=== PATIENT | male | born 1940 | race Caucasian/White ===

== ENCOUNTER 2016-09-27 10:45 | Emergency (ER) | payer MEDICARE, OTHER ==
[~2016-09-27] VITALS: Ht 182.9 cm; Wt 59.5 kg
[~2016-09-27 10:45] MED LIST: ACET325C PO; ATOR20TA PO; CALC-890 PO; CIPR-231 PO; ENZA40CA PO; ESOM40CA41 PO; LACT-188 PO; ONDA-53 PO; PROM25TA14 PO; PUMP300C PO; RIVA20TA PO; SENN-133 PO; TAMS0.4C98 PO; [UNRECOGNIZED DRUG - CODE] PO; [UNRECOGNIZED DRUG - CODE] PO; [UNRECOGNIZED DRUG - OTHER] PO
[2016-09-27 11:02] VITALS: BP 110/67; PULSE 87; RESP 14; O2SAT 99
--- NOTE | 2016-09-27 11:04 | ED.REPORT ---
HPI-General Illness Date of Service Sep 27, 2016 ED Provider: Dr. Greg Quiroz M.D. A 76 year old male with a history of prostate cancer and PE presents to the ED via EMS from his urologist's office with intermittent bilateral leg weakness onset 1.5 weeks ago. The patient has had recent weight loss and frequent falls with no injury/trauma. He denies fever or vomiting. The patient is taking several medications including Bactrim (04/09/16) and Cipro (08/15/16). Additional history was obtained from the patient's . Nursing Notes Stated Complaint: WEAKNESS Chief Complaint: General Complaint Nursing Notes Reviewed: Yes Allergies: Coded Allergies: No Known Allergies (Unverified , 08/08/15) Scheduled ([urostat otc]) 1 CAPSULE PO DAILY Acetaminophen (Acetaminophen) 325 Mg Capsule 325 MG PO prn Atorvastatin (Lipitor) 20 Mg Tablet 20 MG PO DAILY Calcium Carbonate/Vitamin D3 (Calcium 600 + Vit D3 Tablet) 1 Each Tablet 1 TAB PO BID Ciprofloxacin (Cipro) 500 Mg Tablet 500 MG PO BID Ciprofloxacin (Cipro) 500 Mg Tablet 500 MG PO BID Dietary Supplement (Scandishake) 1 Each Packet 1 EACH PO DAILY Enzalutamide (Xtandi) 40 Mg Capsule 160 MG PO qd started 05/25 Esomeprazole Magnesium (Nexium) 40 Mg Capsule.dr 40 MG PO DAILY Lactose-Reduced Food (Ensure Original) 237 Ml Liquid 237 ML PO every meal Levocarnitine (l-Carnitine) 500 Mg Tablet 500 MG PO DAILY Pumpkin Seed Extract/Soy Germ (Azo Bladder Control Capsule) 300 Mg Capsule 300 MG PO DAILY Rivaroxaban (Xarelto) 20 Mg Tablet 20 MG PO DAILY Tamsulosin (Flomax) 0.4 Mg Capsule 0.4 MG PO BID Scheduled PRN Ondansetron (Ondansetron) 4 Mg Tablet 4 MG PO q8hrs PRN PRN prn Promethazine (Promethazine) 25 Mg Tablet 25 MG PO Q6H PRN PRN For Nausea Sennosides (Senna) 8.6 Mg Tablet 2 TAB PO DAILY PRN PRN For Constipation General Time Seen by MD: 11:04 Chief Complaint Weakness Hx Obtained From: Patient, Spouse Arrived By: Ambulance Sudden in Onset?: No Onset Occurred: 1 week ago Symptom Duration: Since onset Severity: Current: No pain currently Severity: Maximum: No pain Associated with: Denies: Fever, Nausea, Vomiting Pertinent Negative: Relieved by nothing Context Related History: Reports Cancer (Prostate) Recent Healthcare: Recent doctor visit Similar Sx Previous: No Past Medical History Past Medical History Prostate cancer Pulmonary embolism in summer Past Surgical History None reported Smoking History Unknown if Ever Smoker Social History Other Social History: Ambulatory Status Independent Review of Systems + frequent falls with no injury/trauma Full Review of Systems Constitutional: Reports: Recent wt loss, Denies: Fever Respiratory: Denies: Non-productive cough, Shortness of breath GI: Denies: Vomiting Neurologic: Reports: Weakness (Bilateral legs) Complete sys rev & neg: except as marked. Physical Exam Vital Signs Vital Signs Date Time Temp Pulse Resp B/P Pulse Ox O2 Delivery O2 Flow Rate FiO2 09/27/16 15:40 102 18 114/63 100 Room Air 09/27/16 15:30 82 16 116/66 100 Room Air 09/27/16 11:02 37.1 87 14 110/67 99 Room Air Initial VS: Reviewed Head / Eyes: Atraumatic, Normocephalic ENT: Conjunctiva normal, No scleral icterus Neck: Supple, Full range of motion Respiratory: Breath sounds normal, Clear to auscultation, No respiratory distress Cardiovascular: Regular rate & rhythm, Heart sounds normal Abdomen / GI: Soft, Non-tender Extremities: Vascular intact, Neuro intact, No swelling Skin: Warm, Dry, No cyanosis Neurologic: Alert, Oriented, Nonfocal Psychiatric: Mood/affect normal, Behavior normal, Normal thought content General/Constitutional: Awake, Alert Appearance / Presentation: Positive: Cachectic, Pale Appears weak Interpretation & Diagnostics Lab Results Interpretation Result Diagram: 09/27/16 1132 09/27/16 1132 Test 09/27/16 11:20 09/27/16 11:32 09/27/16 12:00 Hold Urine Received (Received) White Blood Count 9.8th/mm3 (3.8-10.1) Red Blood Count 3.14mil/mm3 (4.40-5.80) Hemoglobin 9.3g/dL (13.8-17.2) Hematocrit 28.9% (41.0-50.0) Mean Corpuscular Volume 92.0fL (81-100) Mean Corpuscular Hemoglobin 29.6pg (27.0-35.0) Mean Corpuscular Hemoglobin Concent 32.2% (32.0-37.0) Red Cell Distribution Width 16.1% (12.3-15.4) Platelet Count 171bil/L (150-400) Neutrophils (%) (Auto) 89.1% (40-74) Lymphocytes (%) (Auto) 4.1% (14-46) Monocytes (%) (Auto) 6.0% (4-12) Eosinophils (%) (Auto) 0.3% (0-5) Basophils (%) (Auto) 0.1% (0-3) Sodium Level 138mEq/L (134-144) Potassium Level 4.7mEq/L (3.5-5.2) Chloride Level 104mEq/L (97-108) Carbon Dioxide Level 17mmol/L (18-29) Blood Urea Nitrogen 48mg/dL (8-27) Creatinine 1.93mg/dL (0.76-1.27) Estimat Glomerular Filtration Rate 36mL/min (>59) Glucose Level 119mg/dL (60-99) Calcium Level 9.0mg/dL (8.5-10.1) Total Bilirubin 0.6mg/dL (0.0-1.2) Aspartate Amino Transf (AST/SGOT) 10U/L (0-50) Alanine Aminotransferase (ALT/SGPT) 7U/L (0-44) Alkaline Phosphatase 113U/L (25-160) Total Protein 7.6g/dL (6.4-8.4) Albumin 3.2g/dL (3.4-5.0) Hold Erickson Top Tube Received (Received) Urine Color Straw (YELLOW) Urine Appearance Cloudy (CLEAR,HAZY) Urine pH 6.0 (5.0-8.0) Urine Specific [place] 1.015 (1.003-1.035) Urine Protein Tracemg/dL (NEG,TRACE) Urine Glucose (UA) Negativemg/dL (NEGATIVE) Urine Ketones Negativemg/dL (NEGATIVE) Urine Occult Blood Moderate (NEGATIVE) Urine Nitrite Negative (NEGATIVE) Urine Bilirubin Negative (NEGATIVE) Urine Urobilinogen Normalmg/dL (NORMAL) Urine Leukocyte Esterase Large (NEGATIVE) Urine RBC 0-2/hpf (0-2) Urine WBC Packed/hpf (0-5) Urine Epithelial Cells Occasional/hpf (NONE-MOD) Urine Crystals None seen (NONE SEEN) Urine Bacteria Many/hpf (NONE-FEW) Urine Hyaline Casts None/lpf (NONE) Urine Granular Casts None seen (NONE SEEN) Urine Waxy Casts None seen (NONE SEEN) Urine Red Blood Cell Casts None seen (NONE SEEN) Urine White Blood Cell Casts None seen (NONE SEEN) Urine Mucus None seen (None Seen) Urine Trichomonas None seen (NONE SEEN) Urine Yeast None (NONE SEEN) Urinalysis Comment None Urine Culture Reflexed Indicated X-Ray Chest Interpretation Chest Xray Interpretation: IMPRESSION: No significant abnormality is seen on this portable chest examination. If there is clinical concern for a developing pulmonary process, a short-term followup chest series (with PA and lateral views, performed in deep inspiration) or dedicated chest CT would be suggested for further evaluation. Dictated by: Mike Bernard M.D. on 09/27/2016 at 11:45 View: Portable, 1 view Interpretation / Wet Read by: Interpret - Radiologist Re-Eval/Medical Decision Time of Eval: 13:52 Patient Status: Condition improved Re-Evaluation/Progress Note: Discussed with patient lab results, diagnosis, and plan for antibiotics and a road test. The patient wishes to be discharged rather than admitted. Time of Eval: 16:13 Patient Status: Condition improved Re-Evaluation/Progress Note: Discussed with patient plan for discharge. Follow-up and return to the ER instructions given. Patient agrees with plan for care and all questions were addressed. Counseled Regarding: Diagnosis, Lab results, Need for admission Discharge & Departure Primary Impression: UTI (urinary tract infection) Urinary tract infection type: acute cystitis Hematuria presence: without hematuria Qualified Code: N30.00 - Acute cystitis without hematuria Disposition: Home Discharge Condition All VS Reviewed: Yes Condition: Stable Patient Instructions: Urinary Tract Infection in Men (ED) Additional Instructions: Thank you for entrusting us with your care. Please take ciprofloxacin as prescribed, starting tomorrow afternoon. Call your primary care provider tomorrow for a follow-up appointment. Keep your urology appointment next week. Return to the ER with any new or worsening symptoms. Referrals: Tim Trinidad MD (PCP) Scribe Attestation Portions of this note were transcribed by Marina Carlson. I, Dr. Quiroz, personally performed the history, physical exam, and medical decision-making; I reviewed and confirmed the accuracy of the information in the transcribed note. Signed by: Andrew Villarreal, 09/27/2016, 16:24 copies to: Tim Trinidad MD, Kirk H MD Sep 27, 2016 11:04 MARINA CARLSON Sep 27, 2016 11:12
[2016-09-27 12:07] LABS: BASOPHILS % (AUTO) 0.1 % (0-3); EOSINOPHILS % (AUTO) 0.3 % (0-5); Mean Corpuscular Hemoglobin 29.6 pg (27.0-35.0); NEUTROPHILS % (AUTO) 89.1 % (40-74); Platelet Count 171 bil/L (150-400)
[2016-09-27 12:31] LABS: APPEARANCE,URINE CLOUDY (CLEAR,HAZY); COLOR,URINE STRAW (YELLOW); OCCULT BLOOD,URINE MODERATE (NEGATIVE); UROBILINOGEN,URINE NORMAL (NORMAL)
--- NOTE | 2016-09-27 12:47 | DRSVH ---
PROCEDURE: X-RAY CHEST ONE VIEW, PORTABLE ([id number]) INDICATIONS: weakness TECHNIQUE: One view of the chest was acquired. COMPARISON: [facility], CT, CT CHEST WO CON, 05/03/2016, 13:14. [facility], CT, CT CHEST WO CON, 01/04/2016, 11:38. FINDINGS: Surgical changes and devices: None. Lungs and pleura: On this semiupright portable chest examination, no large pneumothorax or large ple ural effusions are seen. No focal infiltrates are seen. Mediastinum: Mediastinal contours appear normal. Heart size is normal. Bones and chest wall: No suspicious bony lesions. Overlying soft tissues appear unremarkable. IMPRESSION: No significant abnormality is seen on this portable chest examination. If there is clinical concern for a developing pulmonary process, a short-term followup chest series ( with PA and lateral views, performed in deep inspiration) or dedicated chest CT would be suggested fo r further evaluation. Dictated by: Mike Bernard M.D. on 09/27/2016 at 11:45 Approved by: Mike Bernard M.D. on 09/27/2016 at 11:45
[2016-09-27] MEDS ORDERED: cefTRIAXone Inj 2,000 MG in IV Premix 1 EACH IV ONE (13:50)
[2016-09-27] MEDS ORDERED: cefTRIAXone Inj 2,000 MG in Dextrose 5% Minibag Plus 50 ML IV ONE (13:58)
[2016-09-27] MEDS ORDERED: DEXTROSE 5% IV SCH (13:59)
[2016-09-27] MEDS ORDERED: CEFTRIAXONE IV SCH (13:59)
[2016-09-27] MEDS ORDERED: 0.9% Sodium Chloride 1,000 ML IV ONE (14:00)
[2016-09-27 15:30] VITALS: BP 116/66; PULSE 82; RESP 16; O2SAT 100
[2016-09-27 15:40] VITALS: BP 114/63; PULSE 102; RESP 18; O2SAT 100
[2016-09-27] MEDS ORDERED: CIPR-231 PO (16:16)
--- NOTE | 2016-09-27 16:29 | NUR ---
spiritual care: pt's Kiana escorted by [facility] staff Ade and stopped in knotting machine operator's office to rest. accompanied pt's to ER to . available to follow as needed.
[2016-09-27 17:02] VITALS: BP 98/61; PULSE 99; RESP 18; O2SAT 98
[2016-12-04] MEDS ORDERED: HYDR-4003 PO (11:19)
[2017-02-10] MEDS ORDERED: ACET325T51 PO (10:44)
== END 2016-09-27 17:05 | disposition home or self-care (01) ==
LOC: EDUNIT# 10:45 → SED 10:45 → EDBD 10:45 → SED 17:05
DX: N30.00 Acute cystitis without hematuria (principal); R29.6 Repeated falls; Z85.46 Personal history of malignant neoplasm of prostate; Z86.711 Personal history of pulmonary embolism; Z79.01 Long term (current) use of anticoagulants
CPT/HCPCS: 36415; 51702; 51798; 71010; 80053; 81000; 85025; 87077; 87086; 87088; 87186; 96365; 99285; G0463; J0696; J7030

== ENCOUNTER 2017-01-03 15:47 | Inpatient (IN) | payer MEDICARE, OTHER ==
[~2017-01-03] VITALS: Ht 180.3 cm; Wt 82.9 kg
[~2017-01-03 15:47] MED LIST changes: -CIPR-231 PO; +HYDR-4003 PO; -PUMP300C PO; -[UNRECOGNIZED DRUG - CODE] PO; -[UNRECOGNIZED DRUG - CODE] PO; -[UNRECOGNIZED DRUG - OTHER] PO
--- NOTE | 2017-01-03 17:15 | NUR ---
Admit direct Pt transported form [facility] via ALS. IV in use Left Hand 18G. Pt demented but aware of situation. Family at bedside. 3L O2 in use per distributing clerk. 100% PSO2. Per report pt was not on 02. Per medic pt has a short time of htn. 200ml bolus given and 1000ml bag continues to infuse. No yu in place. Rafita blood noted at urethral site. Pt seems to be unable to void but feels like he needs too. Care continues
[2017-01-03 17:30] VITALS: BP 120/65; PULSE 113; RESP 18; O2SAT 100
--- NOTE | 2017-01-03 17:50 | NUR ---
Young Young catheter placed by Urology. Dark tea colored urine and blood noted on output. Per Urologist do NOT remove Young catheter. Patent and draining to gravity at this time. A few clots noted. Care continues Hospitalist to see pt and aware pt is here. Care continues
--- NOTE | 2017-01-03 18:03 | PCM.HPSURG ---
Subjective Date of Service: Jan 03, 2017 Referring Provider: Admitting Physician: Nahomy Rai MD Primary Care Physician: Tim Trinidad MD Attending Physician: Nahomy Rai MD Chief Complaint Difficult yu catheter History of Present Illness Mr Covarrubias is a 76 M well known to me for h/o prostate cancer. [facility] ER contacted me today for traumatic yu catheter placement. Home health apparently attempted to perform routine catheter change and inflated the yu within his penile urethra. He states the catheter was painful. Attempt to replace at [facility] ER was unsuccessful. CT at [facility] demonstrates B hydronephrosis (he's had this chronically; though it's slightly increased at this point) as well as air in the bladder wall. He states that apart from the yu problem, he feels in his USOH, which is fairly poor. Allergy Allergies: Coded Allergies: No Known Allergies (Unverified , 08/08/15) [facility] Social History Smoking Status: Unknown if Ever Smoker H&P Surgical Exam Exam General: Alert, Cooperative Abdomen: Soft (softly distended, c/w full bladder) Neuro: Cranial Nerves 2-12 nl Assessment & Plan Assessment Difficult yu placement Plan: Using sterile technique, I placed an 18 Fr yu. There was a false passage within the mid penile urethra. With gentle manipulation, yu was advanced to the bladder; urine was malodorous and cloudy, intermittently yellow and intermittently wine colored. I instructed the pt and family to no longer allow home health to change his yu catheters; this care is to be with urology clinic only. I spoke with Dr Rai about his history and yu placement. Very much appreciate hospitalist care of Mr Covarrubias. He will keep this yu upon discharge home and will f/u with urology monthly for routine catheter changes. Lisset Baker MD Jan 03, 2017 18:03
[2017-01-03] MEDS ORDERED: 0.9% Sodium Chloride 1,000 ML IV SCH ×2 (18:39→18:45)
[2017-01-03] MEDS ORDERED: Polyethylene Glycol (PEG) 17 Gm Powder PO PRN (18:40)
[2017-01-03] MEDS ORDERED: Ondansetron 2 mg/mL 2 mL Inj IVPUSH PRN (18:40)
[2017-01-03] MEDS ORDERED: Alum-Mag Hydrox-Simeth 30 mL Suspension PO PRN (18:40)
[2017-01-03] MEDS ORDERED: PANT40TA3 PO (18:45)
--- NOTE | 2017-01-03 18:52 | PCM.HPMED ---
Subjective Date of Service Jan 03, 2017 Primary Provider: Admitting Physician: Nahomy Rai MD Primary Care Physician: Tim Trinidad MD Attending Physician: Nahomy Rai MD Chief Complaint: Hematuria and possible sepsis History of Present Illness: He has metastatic prostate cancer and has a chronic indwelling Young. It was changed by the home health nurse yesterday and within 30 minutes he began to note hematuria and this morning the bag was full of blood and they brought him to the emergency department at [place]. It was determined that the Young balloon had been expanded the penis instead of the bladder. ED physician remove the Young catheter but was unable to place a new one so he was transferred here to be cared for by his urologist. He had complained of feeling lightheaded, especially with standing, weakness and occasionally some nausea. Denies any known fever or chills or sweats. At [place] emergency department initially his blood pressure was 111/55 but when they stood him blood pressure was 80/48. They also noted a white blood cell count of 13.8 with 30 bands, a lactate of 5.1, 42 and a creatinine of 1.8. They were concerned he might have sepsis due to urinary tract infection and gave him a dose of Zosyn. The urologist reports that when she did place the Young catheter here she obtained foul-smelling urine which has been sent for culture. It is presumed that they obtained blood cultures at [place] emergency department. 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 Xarelto Hyperlipidemia Chart mentions possibility of rheumatoid arthritis, family not aware of him having any arthritis Past history of shingles Surgical History Bilateral rotator cuff rotator cuff surgery Family History Father of a heart attack in his 70s and mother of "old age" in her 80s Social History 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 Thinks he is in his mobile home, does not know the year. HEENT: unremarkable, no JVD Heart: Regular Lungs: Clear anteriorly and laterally Abdomen: Soft, bowel tones present, mild suprapubic tenderness Extremities: No pedal edema Neuro: No apparent deficits hand banana grader strong and equal and able to raise both legs off the bed symmetrically although somewhat weakly Assessment & Plan # Hematuria, by report due to dramatic Young cath insertion with balloon inflated in the urethral - Has already been seen by urology who was able to place a new Young cath - Hold Xarelto - Follow hemoglobin - Other care per urology # Probable urinary tract infection - Zosyn given at [place] emergency department and will be continued - Follow urine and blood cultures # Possible sepsis due to urinary tract infection - Zosyn as above - Check pro calcitonin, lactate reported to be 5.1 and [place] emergency department - Aggressive IV fluid resuscitation # Acute kidney injury, creatinine reported to be 1.8 at [place] emergency department today and had been 1.3 on January 01 - Most likely due to sepsis, possibly also some volume depletion - IV fluids as above - Follow labs # Metastatic prostate cancer - Continue home medications Nahomy Rai MD Jan 03, 2017 18:52
[2017-01-03 19:38] LABS: BASOPHILS % (AUTO) 0 % (0-3); EOSINOPHILS % (AUTO) 0.2 % (0-5); MONOCYTES % (AUTO) 3.4 % (4-12); Mean Corpuscular Hemoglobin 30.7 pg (27.0-35.0); Mean Corpuscular Volume 91.7 fL (81-100); NEUTROPHILS % (AUTO) 93.9 % (40-74); Platelet Count 85 bil/L (150-400)
[2017-01-03] MEDS: 0.9% Sodium Chloride 1,000 ML IV SCH (20:01)
[2017-01-03] MEDS: Famotidine Inj 20 MG in IV Premix 1 EACH IV SCH (20:01)
[2017-01-03 20:55] VITALS: BP 97/61; PULSE 106; RESP 20; O2SAT 98
[2017-01-03 23:41] LABS: APPEARANCE,URINE CLOUDY (CLEAR,HAZY); COLOR,URINE RED (YELLOW); OCCULT BLOOD,URINE LARGE (NEGATIVE); UROBILINOGEN,URINE NORMAL (NORMAL)
[2017-01-04] VITALS (10 sets, daily range): BP systolic 81–104; BP diastolic 43–61; PULSE 96–108; RESP 16–18; O2SAT 90–100
[2017-01-04] MEDS: Piperacillin-Tazo 3.375 Gm Inj 3.375 GM in Dextrose 5% Minibag Plus 50 ML IV SCH ×3 (01:18→17:59)
--- NOTE | 2017-01-04 03:29 | NUR ---
/PSYCH; yu draining dark tea colored urine, foul smelling. Ua sent to the lab= culture indicated. Turned q 2hrs. Bottom reddens easily. Slept well. Did not try to get out of bed. Unable to say where he is but otherwise appropriate. Addendum: 01/04/17 at 0332 by ERNIE RAYMUNDO RN Antibiotic
[2017-01-04] MEDS: 0.9% Sodium Chloride 1,000 ML IV SCH ×4 (04:45→19:44)
--- NOTE | 2017-01-04 07:31 | PCM.PNMED ---
Subjective Date of Service Jan 04, 2017 Subjective No complaints Exam Vital Signs Vital Sign - Last Date Time Temp Pulse Resp B/P Pulse Ox O2 Delivery O2 Flow Rate FiO2 01/04/17 05:43 36.6 108 18 104/61 100 Nasal Cannula 3.00 Intake and Output 01/03/17 01/03/17 01/04/17 Cumulative From/Thru 15:00 23:00 07:00 01/03/17 17:30 - 01/04/17 06:16 Intake Total 0 ml 906 ml 906 ml Output Total 950 ml 950 ml Balance 0 ml -44 ml -44 ml Intake Oral 0 ml 100 ml 100 ml IV Total 806 ml 806 ml Output Urine Total 950 ml 950 ml # Bowel Movements 0 0 Exam General: Alert,oriented to hosp but not date/year, nursing staff have noted confusion, no acute distress Heart: Regular Lungs: Clear anteriorly and laterally although slightly decreased at the right base Abdomen: Soft, non-tender Extremities: 1+ pedal edema IVs and Medications Medications Reviewed: Medications were reviewed in detail Lab and Diagnostics Result Diagram: 01/03/17192401/03/171924 Assessment & Plan # Hematuria, by report due to dramatic Young cath insertion with balloon inflated in the urethral - Has already been seen by urology who was able to place a new Young cath - Christelrelto held - Follow hemoglobin 11.6 --> 9.3 in part due to IVF, will check this pm (see addendum below) and in am - Other care per urology # Gram neg Sepsis, POA presumed due to urinary tract infection - Zosyn given at [place] [facility] and will be continued - Urine obtained here after Zosyn at [place] [facility] is "pending" - 2 sets of blood cultures obtained at [place] [facility] - all 4 bottles growing GNB - phone # there is [phone] - lactate reported to be 5.1 at [place] [facility] - pro calcitonin 6.39 last tho, will recheck tomorrow - Aggressive IV fluid resuscitation ordered at admit but nurses ignored the 2 liter bolus order and just started 100/hr. Will give bolus today, still with mild tachycardia and borderline BP Addendum: Manual SBP by nurse through the day has been 90 (even though MANAGER POOL was getting 80's with automatic cuff) and sev boluses of NS given (3 liters then 4th liter slowed to 250/hr), maintaining the SBP of 90. Then 1600 CBC showed Hgb of 6.9 so ordered one unit pRBC and 2nd to be given if repeat Hgb < 8 (or < 9 with SBP < 100). Platelets also low, probably due to sepsis # Acute kidney injury, creatinine reported to be 1.8 at [place] [facility] on day of admit and had been 1.3 on January 01 - Most likely due to sepsis, possibly also some volume depletion - still 1.8 this am but didn't get IVF bolus as ordered - IV fluids as above - Follow labs # Chest xray with possible pneumonia but since blood cultures positive for GNB will not change antibiotic coverage # Metastatic prostate cancer - Continue home medications VTE Mechanical Devices: Intermittant Pneumatic CD Nahomy Rai MD Jan 04, 2017 07:31
[2017-01-04 07:56] LABS: Mean Corpuscular Hemoglobin 30.1 pg (27.0-35.0); Mean Corpuscular Volume 92.6 fL (81-100)
--- NOTE | 2017-01-04 08:55 | DRSVH ---
PROCEDURE: X-RAY CHEST ONE VIEW, PORTABLE ([id number]) INDICATIONS: sepsis TECHNIQUE: One view of the chest was acquired. COMPARISON: Outside Film, CT, CT ABD PELVIS WO CON, 01/03/2017, 12:21. Outside Film, CR, XR CHEST 1V W, 01/03/2017, 10:55. FINDINGS: Surgical changes and devices: None. Lungs and pleura: No pleural effusions or pneumothorax. Increased interval opacities in the retroca rdiac and right lower lobe. Mediastinum: Mediastinal contours appear normal. Heart size is normal. Bones and chest wall: No suspicious bony lesions. Overlying soft tissues appear unremarkable. IMPRESSION: Increased interval opacities in the retrocardiac and right lower lobe. Findings appear inside technical sales representative of air space disease, which can be atelectasis and/or pneumonia. Dictated by: Gricel Pugh M.D. on 01/04/2017 at 8:38 Approved by: Gricel Pugh M.D. on 01/04/2017 at 8:54
[2017-01-04] MEDS: ENZALUTAMIDE 40 MG PO SCH (08:57)
[2017-01-04] MEDS: Famotidine Inj 20 MG in IV Premix 1 EACH IV SCH (08:58)
--- NOTE | 2017-01-04 09:46 | PCM.PNSURG ---
Subjective Date of Service: Jan 04, 2017 Date of Service: Jan 04, 2017 Visit Information: Reason for Visit Urinary Obstruction Surgery/Surgery Date Post-Op Day # Date of Admission: Jan 03, 2017 at 17:24 Hospital Day # 2 Subjective: Mr Covarrubias has no complaints. He denies pain or feeling untoward. He is consuming clear liquids and applesauce at present. Objective Vital Sign- Last 8 Hours Date Time Temp Pulse Resp B/P Pulse Ox O2 Delivery O2 Flow Rate FiO2 01/04/17 09:31 36.7 99 16 86/43 98 Nasal Cannula 0.50 01/04/17 08:30 Supplement Oxygen 01/04/17 05:43 36.6 108 18 104/61 100 Nasal Cannula 3.00 Intake and Output- Last 8 Hour 01/04/17 Cumulative From/Thru 07:00 01/03/17 17:30 - 01/04/17 06:16 Intake Total 906 ml 906 ml Output Total 950 ml 950 ml Balance -44 ml -44 ml Intake Oral 100 ml 100 ml IV Total 806 ml 806 ml Output Urine Total 950 ml 950 ml # Bowel Movements 0 0 General: Alert, Cooperative Abdomen: Soft, Non-tender Catheters: Urethral 2 Way Yu (draining light yellow tinged urine; totally clear) Result Diagram: 01/04/17 0740 01/04/17 0740 Assessment & Plan Impression HD#2 Problems: Plan Very much appreciate hospitalist care of Mr Covarrubias. From purely urologic standpoint, he can DC home when deemed appropriate from medical standpoint. - He understands he will keep his yu on DC home - He will f/u with urology in 1 month for yu cath change Lisset Baker MD Jan 04, 2017 09:46
--- NOTE | 2017-01-04 10:52 | NUR ---
bolus 2 Liter fluid bolus administered this am per orders. Addendum: 01/04/17 at 1405 by ADRIANNA RONQUILLO RN Pt Blood pressure 81/48, called , administering another 1L bolus Addendum: 01/04/17 at 1918 by ADRIANNA RONQUILLO RN Blood pressures continued to be low, administered a 4th liter of Saline bolus. Hemoglobin level critical, notified MD, order received to type and cross and administer blood. Consent form signed with patient and Verbal consent received with 2 RN verifying from DPOA. Report given to night club manager RN to start blood transfusion when it is ready.
--- NOTE | 2017-01-04 12:24 | NUR ---
MARIE signed, Inpatient from day of admit
[2017-01-04] MEDS ORDERED: 0.9% Sodium Chloride 1,000 ML IV ONE ×3 (13:25→16:45)
[2017-01-04 16:30] LABS: Mean Corpuscular Hemoglobin 29.7 pg (27.0-35.0); Mean Corpuscular Volume 93.1 fL (81-100)
[2017-01-04] MEDS ORDERED: 0.9% Sodium Chloride 250 ML IV PRN (17:05)
--- NOTE | 2017-01-04 18:06 | NUR ---
STUDENT NURSE SHIFT NOTE Pt is pleasant and states he feels okay. His blood pressure has been running low in the high-80s/50s, gave 3L bolus, but patient's BP has not increased. Pt is also receiving NS constantly, concurrently with his ABO. Pt has an indwelling catheter, not to be removed or changed except by his urologist. His urine was dark red this morning, but after an abundance of fluids is a clearer yellow. Pt's hgb at 1700 was 6.9, 1-2 units of PRBC ordered. Pt does not ambulate and uses a bedpan fairly well. Had a small BM today after feeling bloated most of the morning. Plan for now is to continue fluids, blood transfusion if consented, Zosyn for UTI, 2L oxygen via nasal cannula, and monitoring of vital signs and symptoms of worsening sepsis.
[2017-01-04] MEDS: HYDROcodone-APAP 5-325 mg Tablet PO PRN (21:19)
[2017-01-05 00:10] VITALS: BP 91/49; PULSE 88; RESP 16
[2017-01-05 00:47] LABS: Mean Corpuscular Hemoglobin 30.1 pg (27.0-35.0); Mean Corpuscular Volume 88.2 fL (81-100)
[2017-01-05] MEDS: Piperacillin-Tazo 3.375 Gm Inj 3.375 GM in Dextrose 5% Minibag Plus 50 ML IV SCH ×4 (00:47→17:57)
[2017-01-05 04:16] VITALS: BP 95/56; PULSE 84; RESP 16
[2017-01-05 07:12] LABS: BASOPHILS % (AUTO) 0 % (0-3)
[2017-01-05 07:14] LABS: MONOCYTES % (AUTO) 2.2 % (4-12); Mean Corpuscular Hemoglobin 30.2 pg (27.0-35.0); Mean Corpuscular Volume 87.9 fL (81-100); NEUTROPHILS % (AUTO) 90.9 % (40-74); Platelet Count 48 bil/L (150-400)
[2017-01-05] MEDS ORDERED: 0.9% Sodium Chloride 1,000 ML IV ONE (07:45)
--- NOTE | 2017-01-05 08:30 | NUR ---
PRBC Patient's BP and H&H have been running low. Two units PRBC's were given this shift. BP increased to 95/56 after second unit and H&H up to 9, 26.2 after morning lab draw. Patient sleeping most of shift. Voiding using bedpan. Young patent and draining rabia colored urine. Patient A&Ox3 most times, but shows signs of a little confusion occasionally.
[2017-01-05] MEDS ORDERED: Calcium GLUCO 10% (mEq) Inj 9.3 MEQ in Dextrose 5% 100 ML IV ONE (08:35)
[2017-01-05] MEDS: Famotidine Inj 20 MG in IV Premix 1 EACH IV SCH (09:18)
[2017-01-05] MEDS: ENZALUTAMIDE 40 MG PO SCH (09:20)
[2017-01-05 09:28] VITALS: BP 101/56; PULSE 79
[2017-01-05 10:45] VITALS: BP 100/64; PULSE 84; RESP 19; O2SAT 98
[2017-01-05] MEDS: 0.9% Sodium Chloride 1,000 ML IV SCH ×2 (10:45→15:32)
--- NOTE | 2017-01-05 13:54 | PCM.PNMED ---
Subjective Date of Service Jan 05, 2017 Exam Vital Signs Vital Sign - Last Date Time Temp Pulse Resp B/P Pulse Ox O2 Delivery O2 Flow Rate FiO2 01/05/17 09:28 79 101/56 01/05/17 04:16 36.8 16 01/04/17 19:56 Supplement Oxygen 01/04/17 15:18 100 2.00 Intake and Output 01/04/17 01/04/17 01/05/17 Cumulative From/Thru 15:00 23:00 07:00 01/03/17 17:30 - 01/05/17 06:32 Intake Total 2111 ml 700 ml 1062 ml 4779 ml Output Total 1000 ml 1950 ml Balance 2111 ml -300 ml 1062 ml 2829 ml Intake Oral 700 ml 800 ml IV Total 2111 ml 429 ml 3346 ml Packed Cells 633 ml 633 ml Output Urine Total 1000 ml 1950 ml # Bowel Movements 1 1 Lab and Diagnostics Result Diagram: 01/05/17 0645 01/05/17 0645 Assessment & Plan 76 year old male with sepsis Gram neg Sepsis, POA msot likely secondary to urinary tract infection - Continue Zosyn -2 sets of blood cultures obtained at [facility] all 4 bottles growing gram-negative bacteria -Procalcitonin elevated currently trending down, we will continue to monitor - Continue IV fluids - Chest xray with possible pneumonia but since blood cultures positive for GNB will not change antibiotic coverage Hypotension -Bolus of 1L normal saline one dose -Continue normal saline running at 100 mL an hour -Continue to monitor Hypocalcemia -Calcium currently 6.6 -1 time dose of IV calcium gluconate 9.3 mEq given -We will continue to monitor Deconditioning -Wean patient off of oxygen today -Patient should be up in a chair for all meals -Consult physical therapy Hematuria, by report due to dramatic Young cath insertion with balloon inflated in the urethral (currently resolved) - Young cath inserted by urology to continue and not be removed for 1 month and only to be removed by urology - Hemoglobin currently stable History of PE (currently stable) -Restart Xarelto -Continue to monitor H&H for any further signs of bleeding. Acute kidney injury, (resolving) - Most likely due to sepsis, possibly also some volume depletion -Currently 1.48, trending down - Continue IV fluids - Follow labs Metastatic prostate cancer - Continue home medications Disposition: Patient sepsis is resolving along with his acute kidney injury. At this time the patient is being weaned off of oxygen. The patient does have some deconditioning and will be up in a chair for his meals and we will have physical therapy assess the patient as he may need to go to a SNF instead of being discharged home. VTE Mechanical Devices: Intermittant Pneumatic CD Monica Livingston DO Jan 05, 2017 13:54
[2017-01-05 14:35] VITALS: BP 103/60; PULSE 73; RESP 20; O2SAT 99
--- NOTE | 2017-01-05 15:03 | NUR ---
Blood Pressure/Activity Pt tolerated 1 L bolus this morning and blood pressure responded well. Pt has had some mild nausea that was treated with po zofran. Pt has no c/o pain, but was given Tylenol for elevated temp. Pt is alert to self and place but is confused about date. Up to chair for meals FWW 1-2 person assist. Tolerating activity okay. Care continues.
--- NOTE | 2017-01-05 16:49 | NUR ---
Social Work- Initial Assessment Data: See Initial Assessment. Pt is a 76 year old male admitted 01/03/17 for urinary obstruction per H&P. Pt's insurance is [employer] and [employer] for [employer]. Pt's PCP is MD Peres. JUDY met with pt at bedside regarding discharge plan, SW role explained. Pt alert and oriented x3. Pt resides at home with his Kiana [phone] where he receives assistance with ADLs. Pt is currently open with [facility] and [facility] [employer]. JUDY spoke with [facility] liaison, who confirms this. Provided access. Pt has no SNF history. Pt [place]er [place] and does not drive. Pt has no LTC insurance, VA benefits. Pt states his DPOA paperwork is complete, SW requested that pt's bring in copy for the hospital. Pt's DPOA is Kiana. PT evaluation is pending. [facility] spoke with pt regarding potential SNF recommendation, pt agreeable to this if this is PT's recommendation. SW highlighted [facility] information on choice list, SNF CHOICE LIST PROVIDED. Pt stated that he would like additional assistance in the home and more information regarding Meals on Wheels. SW provided Senior Resource Guide, orienting pt to [facility] phone number. SW also provided Meals on Wheels packet to pt. Pt to likely discharge home and resume [facility] [employer], to transport. SW will continue to follow for potential SNF recommendation. Assessment: Pt who is open with [facility] Plan: Pt to likely discharge home and resume [facility], to transport. SW will continue to follow for potential SNF recommendation. PETTY Tamayo Addendum: 01/05/17 at 1654 by SIENA POST Amended: Links added.
[2017-01-05 20:41] VITALS: BP 115/65; PULSE 63; RESP 18; O2SAT 98
[2017-01-06] MEDS: Piperacillin-Tazo 3.375 Gm Inj 3.375 GM in Dextrose 5% Minibag Plus 50 ML IV SCH ×3 (00:13→17:00)
[2017-01-06] MEDS: 0.9% Sodium Chloride 1,000 ML IV SCH ×2 (00:53→15:24)
--- NOTE | 2017-01-06 06:09 | NUR ---
Activity Pt has denied pain or nausea this shift. Young patent and draining rabia urine. Pt being turned/repositioned overnight q 4hrs. Pt able to sleep intermittently throughout shift.
[2017-01-06 06:55] LABS: Mean Corpuscular Hemoglobin 29.7 pg (27.0-35.0); Mean Corpuscular Volume 89.5 fL (81-100)
[2017-01-06 07:09] VITALS: BP 97/58; PULSE 61; RESP 20; O2SAT 99
[2017-01-06 08:20] VITALS: BP 112/61; PULSE 59; RESP 18; O2SAT 98
[2017-01-06] MEDS ORDERED: DEXTROSE 5% IV ONE (08:30)
[2017-01-06] MEDS ORDERED: CALCIUM CHL IV ONE (08:30)
[2017-01-06] MEDS: Famotidine Inj 20 MG in IV Premix 1 EACH IV SCH (08:34)
[2017-01-06] MEDS: ENZALUTAMIDE 40 MG PO SCH (08:34)
[2017-01-06] MEDS ORDERED: SODIUM CHLORIDE 0.9% IV ONE (09:00)
[2017-01-06] MEDS ORDERED: CALCIUM GLUCO IV ONE (09:00)
--- NOTE | 2017-01-06 10:12 | NUR ---
Evaluation completed. Please go to "Notes" then click on "Assessments and Notes" (bottom left corner of screen). Then select appropriate discipline tab on top of screen.
[2017-01-06] MEDS ORDERED: 0.9% Sodium Chloride 100 ML ONE (10:20)
[2017-01-06 12:47] VITALS: BP 118/67; PULSE 60; RESP 18; O2SAT 98
--- NOTE | 2017-01-06 14:19 | NUR ---
[facility] patient when ready, they would need patient's oral chemo brought in by family and then arrangements would need to be made with cancer care center for continuation of drug. Updated SCOUTS Addendum: 01/06/17 at 1511 by JORDAN FOWLER Faxed referral to [facility] per PETTY
--- NOTE | 2017-01-06 14:28 | NUR ---
Social Work-readiness for discharge: Data:EMR Reviewed. Pt is on day 3 of hospitalization for urinary obstruction per H&P. Anticipate 1-2 more days of hospitalization. PT saw pt and they are recommending SNF placement, pt ambulating 2 ft. SW met with pt, son Ranulfo [phone], and to discuss discharge planning, SW role explained. SW explained recommendation of SNF, SNF choice list provided. Pt and family agreeable to SNF referral, but son informed SW that pt is on chemo medication Xtandi and they can bring supply for home. Son would like referral to 1. [facility] 2. [facility] 3. [facility] and 4. [facility]. SW sent referrals to these facilities, access provided in [facility]. SW will continue to follow. Assessment:Pt who would benefit from SNF. Plan: referrals have been made for SNF. 1. [facility] 2. [place] 3. [facility] and 4. [facility]. Facilities aware pt is on chemo medication. SW will continue to follow. PETTY Mancini
--- NOTE | 2017-01-06 14:57 | NUR ---
SW spoke with Jose L from [facility] who confirms they can accept pt with family bringing in chemo medication from home for them to use. Sharon Frausto MSW
--- NOTE | 2017-01-06 16:16 | NUR ---
ACTIVITY/NAUSEA Patient worked with PT today and they are recommending SNF at d/c. Stood and transferred to chair at bedside with FWW, gait belt and cueing. Was up in chair for lunch today. Decreased appetite for breakfast. Pre-medicated with zofran prior to lunch. Still didn't eat very much. Patient stated nothing sounded very good. Family reports decreased appetite recently at home as well.
--- NOTE | 2017-01-06 16:26 | PCM.PNMED ---
Subjective Date of Service January 06, 2017 Subjective Patient was seen and examined at bedside today. Patient denies any chest pain, shortness of breath, vomiting, diarrhea. Patient still complains of nausea and weakness. Overnight events: None Exam Vital Signs Vital Sign - Last Date Time Temp Pulse Resp B/P Pulse Ox O2 Delivery O2 Flow Rate FiO2 01/06/17 12:47 36.9 60 18 118/67 98 Room Air 01/05/17 10:45 2.00 Intake and Output 01/05/17 01/05/17 01/06/17 Cumulative From/Thru 15:00 23:00 07:00 01/03/17 17:30 - 01/06/17 05:34 Intake Total 1366 ml 1508 ml 1200 ml 8853 ml Output Total 650 ml 850 ml 3450 ml Balance 716 ml 658 ml 1200 ml 5403 ml Intake Oral 200 ml 600 ml 1600 ml IV Total 1166 ml 908 ml 1200 ml 6620 ml Packed Cells 633 ml Output Urine Total 650 ml 850 ml 3450 ml # Bowel Movements 0 1 2 Exam Physical Exam: GEN: Patient was awake, alert, responding appropriately to questions HEENT: Pupils equal round and reactive to light, extraocular eye muscles intact , Neck soft supple, trachea midline, nomocephalic/atraumatic CV: +S1/S2, regular rate and rhythm, systolic murmur auscultated Respiratory: CTAB, no wheezes, rales, rhonchi GI: +bowel sounds x4, soft, compressible, nontender to palpation EXT: no clubbing, cyanosis, edema Neuro: Cranial nerves II-XII grossly intact Psych: mood and affect were mildly depressed IVs and Medications Medications Reviewed: Medications were reviewed in detail Lab and Diagnostics Result Diagram: 01/06/17 0635 01/06/17 0635 Assessment & Plan 76 year old male with sepsis Gram neg Sepsis, POA msot likely secondary to urinary tract infection - Continue Zosyn - 2 sets of blood cultures obtained at [facility] emergency room all 4 bottles growing gram-negative bacteria (upon chart review from [facility] today the patient 's blood cultures are sensitive to Zosyn ) - Procalcitonin elevated currently trending down, we will continue to monitor - Continue IV fluids Hypotension (resolving) -Continue normal saline running at 100 mL an hour -Hypotension may also be secondary to inadequate nutrition as patient is not likely to eat secondary to nausea. Patient is to have 4 mg of Zofran 20 minutes prior to all meals. -Continue to monitor Hypocalcemia -Calcium currently 6.4 -1 time dose of IV calcium gluconate 9.3 mEq given (01/05/17) -We will give patient a one-time dose of 4 g of calcium gluconate IV today () -Follow up calcium in the afternoon showed improvement with calcium to 7.5 with a corrected calcium of 8.3 based on the albumin -Start calcium carbonate chews 3 times a day with meals -We will continue to monitor Deconditioning -Wean patient off of oxygen today -Patient should be up in a chair for all meals -Consult physical therapy Hematuria, by report due to dramatic Young cath insertion with balloon inflated in the urethral (currently resolved) - Young cath inserted by urology to continue and not be removed for 1 month and only to be removed by urology - Hemoglobin currently stable History of PE (currently stable) -Restart Xarelto -Continue to monitor H&H for any further signs of bleeding. Acute kidney injury, (resolving) - Most likely due to sepsis, possibly also some volume depletion -Currently 1.48, trending down - Continue IV fluids - Follow labs Metastatic prostate cancer - Continue home medications Disposition: Patient sepsis is resolving along with his acute kidney injury. At this time the patient is being weaned off of oxygen. The patient does have some deconditioning and will be up in a chair for his meals. Physical therapy has evaluated the patient is currently recommending SNF instead of being discharged home. VTE Mechanical Devices: Intermittant Pneumatic CD Monica Livingston DO January 06, 2017 16:26
[2017-01-06 17:27] VITALS: BP 115/70; PULSE 63; RESP 18; O2SAT 96
[2017-01-06 20:37] VITALS: BP 119/68; PULSE 62; RESP 16; O2SAT 99
[2017-01-07] MEDS: Piperacillin-Tazo 3.375 Gm Inj 3.375 GM in Dextrose 5% Minibag Plus 50 ML IV SCH ×2 (00:34→10:02)
[2017-01-07] MEDS: 0.9% Sodium Chloride 1,000 ML IV SCH ×2 (00:54→11:52)
--- NOTE | 2017-01-07 04:11 | NUR ---
Pain Pt reporting generalized back pain 2/10 and requested Tylenol with relief post administration. Young patent, minimal bleeding around meatus. Blanching redness noted on coccyx, mepilex dressing placed and pt turned q4 hrs throughout night.
[2017-01-07 05:56] VITALS: BP 108/62; PULSE 61; RESP 16; O2SAT 98
[2017-01-07] MEDS: Famotidine Inj 20 MG in IV Premix 1 EACH IV SCH (08:08)
[2017-01-07] MEDS: ENZALUTAMIDE 40 MG PO SCH (08:08)
[2017-01-07 08:40] VITALS: BP 122/72; PULSE 70; RESP 18; O2SAT 98
[2017-01-07] MEDS ORDERED: Potassium Chloride 20 mEq SR Tablet PO ONE (10:35)
[2017-01-07] MEDS ORDERED: KCl 40 mEq/D5W 500 mL 40 MEQ in IV Premix 1 EACH IV ONE (10:35)
[2017-01-07 12:35] VITALS: BP 153/79; PULSE 67; RESP 16; O2SAT 97
--- NOTE | 2017-01-07 14:55 | NUR ---
[facility] can accept with Dr. Gruber to follow. [facility] is aware pt will bring his own chemo medication. PETTY Mancini
--- NOTE | 2017-01-07 15:04 | NUR ---
Social Work-readiness for discharge: Data:EMR reviewed. Pt is on day 4 of hospitalization for urinary obstruction per H&P. Pt is not medically stable anticipate 1-2 more days. PT has seen pt and recommended SNF, pt ambulating about 40ft. SW updated pt, son, and that [facility] accept pt when medically stable with pt bringing in his own chemo medication, all agreeable. Paperwork and PASRR In the chart. SW will continue to follow. Assessment:Pt who would benefit form SNF. Plan:[facility]. Pt to bring in his own chemo medication to facility. Paperwork and PASRR In the chart. SW will continue to follow. PETTY Mancini
[2017-01-07 17:01] VITALS: BP 131/75; PULSE 78; RESP 18; O2SAT 100
[2017-01-07] MEDS ORDERED: Ertapenem Inj 1,000 MG in 0.9% Sodium Chloride 50 ML IV SCH (18:00)
--- NOTE | 2017-01-07 18:18 | NUR ---
APPETITE/BACK PAIN Patient states still feels decreased output even with administering anti nausea medication (zofran) prior to meal times. States this isn't a new thing for him, its been going on for a while even at home. Administered promethazine at lunch time to see if a different medication would help, but still ate <25%. c/o mid back pain, 03/17. Administered 650mg tylenol with good effect. Patient was able to sleep and rest in between lunch and dinner.
--- NOTE | 2017-01-07 18:54 | PCM.PNMED ---
Subjective Date of Service January 07, 2017 Subjective Patient was seen and examined at bedside today. Patient denies any chest pain, shortness of breath, vomiting, diarrhea. The patient still complains of nausea with meals however he states that has improved since starting the Zofran 20 minutes prior to eating. The patient still has some weakness and is willing to go to a shelter facility upon discharge. Overnight events: None Exam Vital Signs Vital Sign - Last Date Time Temp Pulse Resp B/P Pulse Ox O2 Delivery O2 Flow Rate FiO2 01/07/17 17:01 36.6 78 18 131/75 100 Room Air 01/05/17 10:45 2.00 Intake and Output 01/06/17 01/06/17 01/07/17 Cumulative From/Thru 15:00 23:00 07:00 01/03/17 17:30 - 01/07/17 05:56 Intake Total 600 ml 1957 ml 2188 ml 14999 ml Output Total 700 ml 600 ml 675 ml 5425 ml Balance -100 ml 1357 ml 1513 ml 8173 ml Intake Oral 600 ml 800 ml 1100 ml 4100 ml IV Total 1157 ml 1088 ml 8865 ml Packed Cells 633 ml Output Urine Total 700 ml 600 ml 675 ml 5425 ml # Bowel Movements 0 1 0 3 Exam Physical Exam: GEN: Patient was awake, alert, responding appropriately to questions HEENT: Pupils equal round and reactive to light, extraocular eye muscles intact , Neck soft supple, trachea midline, nomocephalic/atraumatic CV: +S1/S2, regular rate and rhythm, harsh systolic murmur auscultated Respiratory: CTAB, no wheezes, rales, rhonchi GI: +bowel sounds x4, soft, compressible, nontender to palpation EXT: no clubbing, cyanosis, edema Neuro: Cranial nerves II-XII grossly intact Psych: mood and affect were appropriate IVs and Medications Medications Reviewed: Medications were reviewed in detail Lab and Diagnostics Result Diagram: 01/06/17 0635 01/07/17 0915 Assessment & Plan 76 year old male with sepsis Gram neg Sepsis, POA - Continue Zosyn - 2 sets of blood cultures obtained at [place] emergency room all 4 bottles growing gram-negative bacteria (upon chart review from [facility] today the patient 's blood cultures are sensitive to Zosyn ) - Procalcitonin elevated currently trending down, we will continue to monitor - Continue IV fluids UTI -Urine cultures from [facility] came back today showing ESBL -Infectious disease consulted (Dr. Lehman, case was discussed with him today) Hypotension (resolved) -Discontinue normal saline running at 100 mL an hour -Hypotension may also be secondary to inadequate nutrition as patient is not likely to eat secondary to nausea. Patient is to have 4 mg of Zofran 20 minutes prior to all meals. This seems to have helped and the patient is now eating more. -Continue to monitor Hypocalcemia (resolving) -Calcium currently 7.5 trending up -1 time dose of IV calcium gluconate 9.3 mEq given (01/05/17) -One-time dose of 4 g of calcium gluconate IV (01/06/17) -Follow up calcium in the afternoon showed improvement with calcium to 7.5 with a corrected calcium of 8.3 based on the albumin -Continue calcium carbonate chews 3 times a day with meals -We will continue to monitor Deconditioning -Wean patient off of oxygen today -Patient should be up in a chair for all meals -Consult physical therapy Hematuria, by report due to dramatic Young cath insertion with balloon inflated in the urethral (currently resolved) - Young cath inserted by urology to continue and not be removed for 1 month and only to be removed by urology - Hemoglobin currently stable History of PE (currently stable) -Restart Xarelto -Continue to monitor H&H for any further signs of bleeding. Acute kidney injury, (resolving) - Most likely due to sepsis, possibly also some volume depletion -Currently 1.48, trending down - Continue IV fluids - Follow labs Metastatic prostate cancer - Continue home medications Disposition: Patient sepsis is resolving along with his acute kidney injury. At this time the patient is being weaned off of oxygen. The patient does have some deconditioning and will be up in a chair for his meals. Physical therapy has evaluated the patient is currently recommending SNF instead of being discharged home. The patient is amenable to being discharged home to a shelter facility. Infectious disease has been consulted to reassess the patient 's current antibiotic needs prior to being discharged home as she with a new diagnosis of ESBL found in the urine. The patient's sepsis is most likely secondary to the gram-negative bacteria that was found in the blood. The patient's sepsis could also have potentially been secondary to the chronic use of Yonug catheter as ESBL was found in the urine and is a potential source for infection. With the patient being positive in blood and urine both causes could have been the reason for the patient's sepsis. VTE Mechanical Devices: Intermittant Pneumatic CD Monica Livingston DO January 07, 2017 18:53
--- NOTE | 2017-01-07 19:12 | CONS ---
[address] [address] CONSULTATION REPORT PATIENT: JOE RODRIGUEZ : 1940 MR#: [id number] ADMIT: 01/03/2017 JOB ID: [id number] DATE OF SERVICE: 01/07/[address] Monica Livingston for this consult. 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 HISTORY OF THE PRESENT ILLNESS: The patient is an extremely unfortunate, 76-year-old gentleman with longstanding metastatic prostate cancer with mets to the thoracic spine and obstructive uropathy. He was doing I and O catheterization until fairly recently when he switched to a Young catheter. Several days ago, [facility] was doing a routine catheter exchange on the patient but had difficulty and there was subsequent hematuria. Because of concerns about the placement of the Young, the patient was sent to the [facility] because of the hematuria resulting from the Young exchange, as well as generalized weakness and progressive debility. The patient was sent to the [facility] emergency department and subsequently admitted. While he was at [facility] being evaluated for his generalized weakness, near syncope, fatigue, and hematuria after his Young exchange, he was found to be profoundly hypotensive with a tremendous left shift in his white count, lactic acidosis, and worsening renal function. At that point, decision was made to course to admit him and decision was made to exchange the catheter once again and that was performed by an urologist, and to culture the patient and start him on broad-spectrum antibiotics. The patient subsequently has improved with IV antibiotics which currently include just Zosyn, and multiple organisms have been cultured from urine as well as one from the blood. Because of his septic shock, bacteremia, complicated urologic situation and overall debility, it was decided to transfer the patient to [facility], and he arrived here on January 03. Subsequent to his arrival here, he has improved somewhat with respect to his hemodynamics and overall lab picture, but he remains profoundly weak and disabled by his progressive weight loss and weakness. At this point, the patient is somewhat improved over the way he was when he arrived at [facility], and he has no fevers or chills. He does not have any significant headache, sore throat, or shortness of breath, but he is essentially bedridden so it is difficult to say what his overall respiratory status is. He has no nausea or vomiting right now but has had recurrent problems with nausea. No ongoing diarrhea. He does have some pain in his bladder even though it is decompressed by a Young catheter that had been replaced in the emergency department at [facility] some four days ago. ID consultation is requested regarding management of these multiple gram-negative isolates from urine and blood. PAST MEDICAL HISTORY: 1. Prostate cancer with mets to thoracic spine. On chemotherapy. 2. Obstructive uropathy, previously managed with I and O catheter. Now managed with indwelling Young. 3. Pulmonary embolism. 4. Zoster. 5. Profound weight loss. SOCIAL HISTORY: The patient previously served in the [employer] and then was a long-time employee of the [employer]. 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 The patient was never stationed overseas and has never lived overseas. He smoked briefly some 40 years ago. He drinks alcohol socially in very limited amounts. He lives in the [facility] with his . FAMILY HISTORY: Negative for tuberculosis in first- and second-degree relatives. REVIEW OF SYSTEMS: The patient, at this point, has no headache or acute visual complaint. He has had some issues with sore throat, but none currently. He denies swelling in his neck or stiff neck. No significant shortness of breath or cough, though the patient is almost bedbound at this point, so it is hard to know if he has any dyspnea on exertion. No ongoing chest pain. He does have continual thoracic spine pain which is getting worse not better. He has had issues at times with nausea though not this moment. No vomiting at this time and no diarrhea. He has pain in his bladder despite the indwelling Young catheter with suprapubic-type tenderness. He has had generalized weight loss of about 40 pounds over the past few months and has intermittent night sweats. His overall view is that his cancer chemotherapy is not working. The patient reports progressive wasting and weakness of his extremities and now has difficulty getting around his house due to unsteadiness and weakness in his lower extremities. He notes some swelling of the lower extremities, perhaps left greater than right, which is an ongoing problem. Remainder of the review of systems negative or noncontributory. PHYSICAL EXAMINATION: Reveals an afebrile gentleman, temperature 36.6, pulse 78, respiratory rate 18, blood pressure 131/75, saturating 100% on room air. He looks wasted, chronically ill, and older than his stated age. He has very obvious temporal wasting which is profound. There is no head trauma. However, his conjunctivae are somewhat pale. Oral cavity: No thrush, hairy leukoplakia or pharyngitis. His neck is supple. No adenopathy noted. Lungs relatively clear anteriorly. Cardiac tones: Regular rate and rhythm without appreciable murmur. The abdomen is soft and nontender without organomegaly or obvious masses. The suprapubic area is mildly tender to palpation. Young catheter is present. The extremities are somewhat wasted with edema, about 2+ on the left foot and ankle area, 1+ on the right. There are no venous stasis changes. There is no evidence for cellulitis or skin breakdown in the lower extremities. Motor strength is at best 4/5 throughout and may be slightly less in his lower extremities bilaterally. Neurologically, the patient can move all of his extremities. Seems to have intact sensation but is just overall wasted and weak. LABORATORIES: Include white count was 13,000 with left shift at [facility]. It is now 6000 with 90% segs. His platelet count 48,000. Creatinine 1.19 which is actually improved over when he arrived here. Albumin, a low 2.1. Procalcitonin was 12 on admission, went to 9, and is now 5, reflecting a steady downward trend. LFTs normal. Urinalysis packed with red cells, packed with white cells. Urine culture here is contaminated. The urine culture at [facility] yielded two separate strains of Klebsiella pneumoniae, as well as a single Morganella morganii. The Morganella is moderately resistant, while the two strains of Klebsiella are presumed ESBL organisms based on the resistance pattern. Oddly, the lab says both strains of Klebsiella are resistant to Cipro but sensitive to levofloxacin, which is almost never the case and calls into question the applicability of this susceptibility panel. Blood cultures at [facility] grew Morganella which appears to be the same organism seen in the urine. IMAGING: Here, includes a chest radiograph which shows opacities in the lower lungs which are likely due to atelectasis. I personally reviewed that chest x-ray on the film and think it looks more like atelectasis than a significant bacterial pneumonia. IMPRESSION: This is an extremely unfortunate, 76-year-old man with progressive and metastatic prostate cancer, who is now wasting and largely bedridden. He had complications with a Young switch-out several days ago which seems to have precipitated an episode of profound weakness, hypotension, lactic acidosis, and septic shock. Urine and blood grew Morganella, and urine grew two species of Klebsiella, which were quite resistant but not found in any of the blood cultures done at [place]. The patient believes that his infectious symptoms are starting to improve at this point, even as he continues to lose weight, have extremely low energy and a great deal of back pain. RECOMMENDATIONS: 1. Will change the Zosyn to ertapenem. 2. I would treat this patient for a full two weeks with IV antibiotics. The patient gets credit for the time that he received Zosyn, however, both here and at [facility], which starts back on January 03, so I would consider this to be the fourth day of effective therapy with the plan to go 10 more days which would take us through January 17. 3. The patient may require a PICC or midline catheter to complete that 10 days of antibiotics. If, on the other hand, he may be going to rehab or half-way facility, he can probably get along with peripheral IVs as he only needs about 10 more days of the IV ertapenem. 4. The patient's overall condition is extremely poor with his progressive wasting, and I wonder if at some point, Hospice or Palliative Care will need to be involved just given his progressive debility and seemingly end-stage disease.
--- NOTE | 2017-01-07 19:57 | NUR ---
Nausea P: Patient reported nausea and loss of appetite previous few days. I: Administered zofran, xarelto, and tums as ordered when pt requested a sandwich. E: Pt ate the sandwich without reporting any nausea. S: Bed low and locked, three side rails up, call light within reach.
[2017-01-07 20:34] VITALS: BP 134/73; PULSE 82; RESP 24; O2SAT 97
[2017-01-08] MEDS: HYDROcodone-APAP 5-325 mg Tablet PO PRN ×3 (00:06→14:29)
[2017-01-08 00:45] VITALS: BP 135/71; PULSE 74; RESP 24; O2SAT 98
--- NOTE | 2017-01-08 01:00 | NUR ---
Back pain Pt c/o back pain 5/10 unrelieved by repositioning. Todd 5/325mg given with good effect per pt. Pt appears to be resting comfortably without s/sx of distress. care ongoing.
[2017-01-08 05:13] VITALS: BP 125/68; PULSE 68; RESP 20; O2SAT 100
[2017-01-08 07:54] LABS: Mean Corpuscular Hemoglobin 30.2 pg (27.0-35.0); Mean Corpuscular Volume 88.9 fL (81-100)
[2017-01-08] MEDS: ENZALUTAMIDE 40 MG PO SCH (09:36)
[2017-01-08] MEDS ORDERED: Sodium Chloride LOK Flush 10 mL Syringe IVFLUSH PRN ×2 (10:15)
--- NOTE | 2017-01-08 10:35 | PROG NOTE ---
[address] [address] PROGRESS NOTE PATIENT: JOE RODRIGUEZ : 1940 MR#: [id number] ADMIT: 01/03/2017 JOB ID: [id number] DATE: 01/08/2017 REASON FOR FOLLOWUP: Bacteremic complicated urinary tract infection with Morganella. INTERVAL HISTORY: Overnight, the patient says he has felt "fair". He denies significant fevers, chills, or sweats. No cough, shortness of breath, or chest pain, but he still felt profoundly weak. No abdominal pain, nausea, vomiting, or diarrhea. PHYSICAL EXAMINATION: Reveals an afebrile gentleman sitting up in a chair. Temp 36.4, pulse 68, respiratory rate 20, blood pressure 125/68, saturating well on room air. He is alert and oriented though his speech is somewhat slow as it was yesterday. No abnormalities of the eyes. Oral cavity unchanged. Lungs clear. Cardiac tones without new murmur. Abdomen soft, nontender. Patient continues to have a swollen scrotum. Testicles are nontender and no evidence for epididymitis. A Young catheter is present. LABORATORIES: Include a white count of 6200, platelet count has jumped up to 90,000. Creatinine 1.11. LFTs are normal. Procalcitonin 1.79 down from a peak of 12 so a strong downward trend there. Urine culture was contaminated here, but we have the cultures from [place] where 3 organisms including 2 species of Klebsiella and 1 Morganella were isolated from the urine. The Morganella was also isolated from blood. No new imaging is available. IMPRESSION: This is an unfortunate gentleman with a progressive prostate cancer and obstructive uropathy who has developed a polymicrobial urinary tract infection with mono microbial bacteremia due to Morganella. From an Infectious Disease point of view, he is doing well on ertapenem and will continue that. Total course will extend to January 17. RECOMMENDATIONS: 1. Morganella 1 g once a day through January 17. 2. The patient could be transferred at any time to [facility] which I understand is the discharge plan. 3. If he does go to a residential facility. He probably does not need a central line as he is doing okay with peripheral IVs. Were he to go home with home health, he would likely need a midline or some other catheter that could be retained for the next 9 days or so.
[2017-01-08] MEDS ORDERED: Calcium GLUCO 10% (Gm) Inj 2 GM in 0.9% Sodium Chloride 100 ML IV ONE (11:50)
[2017-01-08] MEDS ORDERED: HYDR-4003 PO (11:53)
[2017-01-08] MEDS ORDERED: TEMA15CA3 PO (11:53)
[2017-01-08] MEDS ORDERED: INVANZ1I IV (11:53)
[2017-01-08] MEDS ORDERED: CALC500T53 PO (11:53)
--- NOTE | 2017-01-08 11:55 | PCM.DC.MED ---
Discharge Summary Date of Service January 08, 2017 Dates of Hospitalization Date of Hospital Admission Jan 03, 2017 at 17:24 Date of Discharge: January 08, 2017 Providers: Admitting Physician: Nahomy Rai MD Primary Care Physician: Tim Trinidad MD Attending Physician: Nahomy Rai MD Brief History He has metastatic prostate cancer and has a chronic indwelling Young. It was changed by the home health nurse yesterday and within 30 minutes he began to note hematuria and this morning the bag was full of blood and they brought him to the emergency department at [facility]. It was determined that the Young balloon had been expanded the penis instead of the bladder. ED physician remove the Young catheter but was unable to place a new one so he was transferred here to be cared for by his urologist. He had complained of feeling lightheaded, especially with standing, weakness and occasionally some nausea. Denies any known fever or chills or sweats. At [facility] emergency department initially his blood pressure was 111/55 but when they stood him blood pressure was 80/48. They also noted a white blood cell count of 13.8 with 30 bands, a lactate of 5.1, 42 and a creatinine of 1.8. They were concerned he might have sepsis due to urinary tract infection and gave him a dose of Zosyn. The urologist reports that when she did place the Young catheter here she obtained foul-smelling urine which has been sent for culture. It is presumed that they obtained blood cultures at [facility] emergency department. Hospital Course 76 year old male with sepsis Patient is a 76-year-old male who presented with sepsis secondary to gram- negative bacteria found in the blood as well as a UTI caused by ESBL. The patient was treated with IV antibiotics and seemed to be responding well. The patient was changed to ertapenem once the positive culture for ESBL was found as per recommended by Dr. Lehman. The patient had a significant amount of deconditioning and so it was recommended the patient go to a care home facility for rehabilitation. The patient was also had a PICC line placed to complete his 10 day course of ertapenem daily. The patient will follow-up with Dr. Peres within 1 week for further oncology recommendations as the patient is still currently on chemotherapy. The patient is being discharged to a care home facility in stable condition. For full hospital course please see below: Gram neg Sepsis, POA - Discontinue and start ertapenem 1 g every 24 - 2 sets of blood cultures obtained at [facility] emergency room all 4 bottles growing gram-negative bacteria (upon chart review from [facility] today the patient 's blood cultures are sensitive to Zosyn ) - Procalcitonin elevated currently trending down, we will continue to monitor - Continue IV fluids UTI -Urine cultures from [facility] came back today showing ESBL -Infectious disease consulted (Dr. Lehman, case was discussed with him today) Hypotension (resolved) -Discontinue normal saline running at 100 mL an hour -Hypotension may also be secondary to inadequate nutrition as patient is not likely to eat secondary to nausea. Patient is to have 4 mg of Zofran 20 minutes prior to all meals. This seems to have helped and the patient is now eating more. -Continue to monitor Hypocalcemia (resolving) -Calcium currently 7.5 trending up -1 time dose of IV calcium gluconate 9.3 mEq given (01/05/17) -One-time dose of 4 g of calcium gluconate IV (01/06/17) -Follow up calcium in the afternoon showed improvement with calcium to 7.5 with a corrected calcium of 8.3 based on the albumin -Continue calcium carbonate chews 3 times a day with meals -We will continue to monitor Deconditioning -Wean patient off of oxygen today -Patient should be up in a chair for all meals -Consult physical therapy Hematuria, by report due to dramatic Young cath insertion with balloon inflated in the urethral (currently resolved) - Young cath inserted by urology to continue and not be removed for 1 month and only to be removed by urology - Hemoglobin currently stable History of PE (currently stable) -Restart Xarelto -Continue to monitor H&H for any further signs of bleeding. Acute kidney injury, (resolving) - Most likely due to sepsis, possibly also some volume depletion -Currently 1.48, trending down - Continue IV fluids - Follow labs Metastatic prostate cancer - Continue home medications Disposition: Patient sepsis is resolving along with his acute kidney injury. At this time the patient is being weaned off of oxygen. The patient does have some deconditioning and will be up in a chair for his meals. Physical therapy has evaluated the patient is currently recommending SNF instead of being discharged home. The patient is amenable to being discharged home to a care home facility. Infectious disease has been consulted to reassess the patient 's current antibiotic needs prior to being discharged home as she with a new diagnosis of ESBL found in the urine. The patient's sepsis is most likely secondary to the gram-negative bacteria that was found in the blood. The patient's sepsis could also have potentially been secondary to the chronic use of Young catheter as ESBL was found in the urine and is a potential source for infection. With the patient being positive in blood and urine both causes could have been the reason for the patient's sepsis. Exam Vital Signs (Last) Date Time Temp Pulse Resp B/P Pulse Ox O2 Delivery O2 Flow Rate FiO2 01/08/17 05:13 36.4 68 20 125/68 100 Room Air 01/05/17 10:45 2.00 Exam Physical Exam: GEN: Patient was awake, alert, responding appropriately to questions HEENT: Pupils equal round and reactive to light, extraocular eye muscles intact , Neck soft supple, trachea midline, nomocephalic/atraumatic CV: +S1/S2, regular rate and rhythm, harsh systolic murmur auscultated Respiratory: CTAB, no wheezes, rales, rhonchi GI: +bowel sounds x4, soft, compressible, nontender to palpation EXT: no clubbing, cyanosis, edema Neuro: Cranial nerves II-XII grossly intact Psych: mood and affect were appropriate Test 01/03/17 23:10 01/05/17 06:45 01/07/17 09:33 01/08/17 07:25 Urine Color Red (YELLOW) Urine Appearance Cloudy (CLEAR,HAZY) Urine pH 7.0 (5.0-8.0) Urine Specific [place] 1.010 (1.003-1.035) Urine Protein 100mg/dL (NEG,TRACE) Urine Glucose (UA) Negativemg/dL (NEGATIVE) Urine Ketones Negativemg/dL (NEGATIVE) Urine Occult Blood Large (NEGATIVE) Urine Nitrite Positive (NEGATIVE) Urine Bilirubin Negative (NEGATIVE) Urine Urobilinogen Normalmg/dL (NORMAL) Urine Leukocyte Esterase Moderate (NEGATIVE) Urine RBC >50/hpf (0-2) Urine WBC Packed/hpf (0-5) Urine Epithelial Cells Occasional/hpf (NONE-MOD) Urine Crystals None seen (NONE SEEN) Urine Bacteria Moderate/hpf (NONE-FEW) Urine Hyaline Casts None/lpf (NONE) Urine Granular Casts None seen (NONE SEEN) Urine Waxy Casts None seen (NONE SEEN) Urine Red Blood Cell Casts None seen (NONE SEEN) Urine White Blood Cell Casts None seen (NONE SEEN) Urine Mucus None seen (None Seen) Urine Trichomonas None seen (NONE SEEN) Urine Yeast None (NONE SEEN) Urinalysis Comment None Urine Culture Reflexed Indicated Neutrophils (%) (Auto) 90.9% (40-74) Lymphocytes (%) (Auto) 5.2% (14-46) Monocytes (%) (Auto) 2.2% (4-12) Eosinophils (%) (Auto) 1.0% (0-5) Basophils (%) (Auto) 0% (0-3) [place] Top Tube Received (Received) White Blood Count 6.2th/mm3 (3.8-10.1) Red Blood Count 3.15mil/mm3 (4.40-5.80) Hemoglobin 9.5g/dL (13.8-17.2) Hematocrit 28.0% (41.0-50.0) Mean Corpuscular Volume 88.9fL (81-100) Mean Corpuscular Hemoglobin 30.2pg (27.0-35.0) Mean Corpuscular Hemoglobin Concent 33.9% (32.0-37.0) Red Cell Distribution Width 16.2% (12.3-15.4) Platelet Count 90bil/L (150-400) Sodium Level 140mEq/L (134-144) Potassium Level 3.8mEq/L (3.5-5.2) Chloride Level 115mEq/L (97-108) Carbon Dioxide Level 14mmol/L (18-29) Blood Urea Nitrogen 26mg/dL (8-27) Creatinine 1.11mg/dL (0.76-1.27) Estimat Glomerular Filtration Rate 69mL/min (>59) Glucose Level 95mg/dL (60-99) Calcium Level 7.3mg/dL (8.5-10.1) Total Bilirubin 0.7mg/dL (0.0-1.2) Aspartate Amino Transf (AST/SGOT) 7U/L (0-50) Alanine Aminotransferase (ALT/SGPT) 5U/L (0-44) Alkaline Phosphatase 96U/L (25-160) Total Protein 4.3g/dL (6.4-8.4) Albumin 2.1g/dL (3.4-5.0) Procalcitonin 1.79ng/mL (0.00-0.08) Discharge Medications Discharge Medications Calcium Carbonate (Calcium Carbonate) 200 Mg Tab.chew 500 MG PO TIDWM Prescribed by: VANIA LIVINGSTON DO Enzalutamide (Xtandi) 40 Mg Capsule 80 MG PO BID (Reported) AM, afternoon Ertapenem Sodium (Invanz) 1,000 Mg/10 Ml Vial 1,000 MG IV DAILY Prescribed by: VANIA LIVINGSTON DO Pantoprazole DR (Pantoprazole DR) 40 Mg Tablet.dr 40 MG PO QAM (Reported) 30min prior to first meal Rivaroxaban (Xarelto) 20 Mg Tablet 20 MG PO HS (Reported) As needed Hydrocodone-Acetaminophen 5-325 mg (Hydrocodone-Acetaminophen 5-325 mg) 1 Each Tablet 1 TABLET PO Q4H PRN PRN For Pain (Reported) Hydrocodone-Acetaminophen 5-325 mg (Hydrocodone-Acetaminophen 5-325 mg) 1 Each Tablet 1-2 TABLET PO Q4H PRN PRN For Moderate Pain Prescribed by: VANIA LIVINGSTON DO Ondansetron (Ondansetron) 4 Mg Tablet 4 MG PO q8hrs PRN PRN prn (Reported) Promethazine (Promethazine) 25 Mg Tablet 25 MG PO Q6H PRN PRN For Nausea ( Reported) Temazepam (Restoril) 15 Mg Capsule 15 MG PO HS PRN PRN Insomnia Prescribed by: VANIA LIVINGSTON DO Followup Plan Discharge Diet: No restrictions Discharge Activity: Home Health Phyical Therapy Follow-up Provider: Tim Trinidad MD Follow-up with PCP in: 1 week Follow-up in: 1 week ( (if the appointment has not been made please call to schedule an appointment. If the care home facility has a primary care physician that they use he may follow-up with his primary care physician)) Time spent Greater than 35 minutes Vania Livingston DO January 08, 2017 11:55
--- NOTE | 2017-01-08 12:01 | PCM.DIMED ---
Discharge Instructions Date of Service January 08, 2017 Dates of Hospitalization Jan 03, 2017 at 17:24 Discharge Diagnosis Discharge Diagnosis Gram-negative bacterial sepsis UTI secondary to ESBL Hypotension (resolved) Hypocalcemia (resolving) Deconditioning Hematuria History of PE (stable) Metastatic prostate cancer Diet No restrictions Activity Home Health Phyical Therapy (gradually return to normal daily activities with assistance from home health physical therapy) Call your provider Shortness of breath, Bleeding, Chest pain, Vomitting, Excessive diarrhea Patient Instructions Follow-up Provider: Nahomy Rai MD Follow-up with PCP in: 1 week (if the appointment has not been made please call to schedule an appointment. If the group home facility has a primary care physician that they use he may follow-up with his primary care physician) Provider: Tim Trinidad MD Follow-up in: 1 week (please follow-up with your oncologist appointment has not been made. Schedule appointment) Monica Livingston DO January 08, 2017 12:01
--- NOTE | 2017-01-08 13:06 | NUR ---
Faxed orders to [facility] and placed copy in the chart
[2017-01-08] MEDS: Famotidine Inj 20 MG in IV Premix 1 EACH IV SCH (13:23)
--- NOTE | 2017-01-08 13:54 | NUR ---
Social Work-discharge: Data:EMR Reviewed. Pt is on day 5 of hospitalization for urinary obstruction per H&P. Pt is medically stable for discharge. SW confirmed with MD that pt will need 10 days of IV abx and JS is aware and able to accommodate the IV abx. Pt did have PICC line placed. PT continues to recommend SNF also. [facility] has set up transport for 1500. SW updated pt at bedside and and son via phone, all agreeable. Pt to go with chemo medication to facility. RN,BAL,pt/family, and JS all updated and agreeable to plan. Assessment:Pt who would benefit from SNF. Plan:Pt to discharge to [facility] today via cabulance at 1500. Pt to have 10 days of IV abx, PICC line in place. RN,BAL,pt/family, and JS all updated and agreeable to plan. Sharon Frausto,RADIOLOGY PHYSICIAN ASSISTANT
--- NOTE | 2017-01-08 14:13 | DRSVH ---
PROCEDURE: X-RAY PICC LINE PLACEMENT BY NURSE ([id number]) INDICATIONS: IV antibiotics therapy COMPARISON: None. FINDINGS: PICC was placed by the intravenous therapy team from the right side. Fluoroscopic spot fi lm demonstrates tip projected over the lower SVC. IMPRESSION: Tip of PICC projected over the lower SVC . Dictated by: Travis YANCEY Interpreted: Bennett Antonio MD on 01/08/2017 at 14:12 Transcribed by: MARGARITA on 01/08/2017 at 14:12 Approved by: Bennett Antonio M.D. on 01/08/2017 at 14:33
[2017-01-08 14:48] VITALS: BP 148/76; PULSE 73; RESP 20; O2SAT 97
--- NOTE | 2017-01-08 15:02 | NUR ---
Discharge note- Patient up with assist to bathroom and up in chair for meals. medicated for complaint of back pain with Vicodin with good relief. PICC line placed in right arm today. Discharged to [facility] via cabulance. Report called to receiving nurse.
[2017-02-10] MEDS ORDERED: ACET325T51 PO (10:44)
== END 2017-01-08 14:55 | DRG 698 ==
LOC: OBSVTOIN 17:24 → OSC 17:24
PROVIDERS: ADMIT Internal Medicine; ATTEND Internal Medicine
DX: T83.511A Infection and inflammatory reaction due to indwelling urethral catheter, initial encounter (principal); A41.50 Gram-negative sepsis, unspecified; R65.21 Severe sepsis with septic shock; N17.9 Acute kidney failure, unspecified; C79.51 Secondary malignant neoplasm of bone; N39.0 Urinary tract infection, site not specified; E78.5 Hyperlipidemia, unspecified; C61 Malignant neoplasm of prostate; E83.51 Hypocalcemia; Z86.711 Personal history of pulmonary embolism; Z79.01 Long term (current) use of anticoagulants; N13.9 Obstructive and reflux uropathy, unspecified; B96.20 Unspecified Escherichia coli [E. coli] as the cause of diseases classified elsewhere